=== PATIENT | female | born 1995 | race Two or more races ===

== ENCOUNTER 2018-05-26 14:30 | Inpatient (IN) | payer OTHER ==
[2018-06-02] MEDS ORDERED: CITRIC ACID/SODIUM CITRATE 30 ML UNIT-DOSE CUP PO ONE (11:57)
[2018-06-02] MEDS ORDERED: ELECTROLYTE-148 SOLN 1,000 ML IV ONE (11:57)
[2018-06-02] MEDS ORDERED: ELECTROLYTE-148 SOLN 1,000 ML IV SCH (13:00)
[2018-06-02] MEDS ORDERED: DEXTROSE 5%-LACTATED RINGERS 500 ML IV ONE (13:00)
[2018-06-02 13:02] VITALS: BMI 32.5
[2018-06-02] MEDS ORDERED: OXYTOCIN 20 UNITS in 0.9% NS 40 UNIT/2,000 ML INFUS.BAG IV ONE (14:40)
[2018-06-02] MEDS ORDERED: PROPOFOL 20 ML ONE (14:44)
[2018-06-02] MEDS ORDERED: SODIUM CHLORIDE 0.9% P/F 10 ML VIAL IJ ONE ×2 (14:45→14:47)
[2018-06-02] MEDS ORDERED: DEXAMETHASONE SOD PHOSPHATE 4 MG/1 ML VIAL ONE (14:45)
[2018-06-02] MEDS ORDERED: ePHEDrine SULFATE 50 MG/1 ML AMPULE ONE (14:45)
[2018-06-02] MEDS ORDERED: ceFAZolin SODIUM 1 GM VIAL ONE (14:45)
[2018-06-02] MEDS ORDERED: morphine SULFATE/Preservative Free 0.5 MG/ML (1cc Syringe) ONE ×2 (14:49→14:52)
--- NOTE | 2018-06-02 14:52 | HP ---
Past Medical History - Primary Care Physician PCP:: Lee Pollock - Admission Chief Complaint: 39 weeks, breech , GDM History of Present Illness: 23yo f 39 weeks, with HX of GDM, late registrant , breech presentation , admitted for c/s , cx clp, breech , fhr cat 1, procedure risks and benefit has explained to patient , History Source: Patient Limitations to Obtaining History: Language Barrier - Past Medical History ...: 1 ...Para: 0 ...Term: 0 ...: 0 ...Spon : 0 ...Induced : 0 ...Multiple Gestation: 0 ...LMP: 09/04/17 ... Weeks Gestation by Dates: 38.5 ...EDC by Dates: 06/11/18 ...EDC by Sono: 06/07/18 - Past Surgical History Hx Myomectomy: No Hx Transabdominal Cerclage: No - Smoking History Smoking history: Never smoked Have you smoked in the past 12 months: No - Alcohol/Substance Use Hx Alcohol Use: No - Social History Usual Living Arrangement: Yes: Alone History of Recent Travel: No Home Medications - Allergies Allergies/Adverse Reactions: Allergies Allergy/AdvReac Type Severity Reaction Status Date / Time No Known Allergies Allergy Verified 06/02/18 12:07 - Home Medications Home Medications: Ambulatory Orders Pnv No.95/Ferrous Fum/Folic AC [ Formula] 1 each PO DAILY 05/24/18 Review of Systems - Review of Systems Constitutional: reports: No Symptoms Eyes: reports: No Symptoms HENT: reports: No Symptoms Neck: reports: No Symptoms Cardiovascular: reports: No Symptoms Respiratory: reports: No Symptoms Gastrointestinal: reports: No Symptoms Genitourinary: reports: No Symptoms Breasts: reports: No Symptoms Reported Musculoskeletal: reports: No Symptoms Integumentary: reports: No Symptoms Neurological: reports: No Symptoms Endocrine: reports: No Symptoms Hematology/Lymphatic: reports: No Symptoms Psychiatric: reports: No Symptoms Physical Exam - Maternity Vital Signs: Vital Signs Temperature 98.0 F 06/02/18 12:00 Pulse Rate 78 06/02/18 12:00 Respiratory Rate 18 06/02/18 12:00 Blood Pressure 128/55 L 06/02/18 12:00 O2 Sat by Pulse Oximetry (%) Constitutional: Yes: Well Nourished, No Distress, Calm Eyes: Yes: WNL, Conjunctiva Clear, EOM Intact HENT: Yes: WNL, Atraumatic, Normocephalic Neck: Yes: WNL, Supple, Trachea Midline Cardiovascular: Yes: WNL, Regular Rate and Rhythm Breast(s): Yes: WNL - Abdominal Exam/OB Fundal Height: 40 Number of Fetuses: Single Presentation: Breech Contractions: Yes Regularity: Irregular Intensity: Unaware Monitor Mode: External Heart Rate Location: [facility] Category: I Accelerations: Uniform Decelerations: None - Vaginal Exam/OB Vaginal Bleediing: No Speculum Exam: No Dilatation (cm): closed Effacement (%): 50 Amniotic Membrane Status: Intact Presentation: Hany Breech Station: -3 - Physical Exam Musculoskeletal: Yes: WNL Extremities: Yes: WNL Edema: Yes Edema: LLE: Trace, RLE: Trace Deep Tendon Reflex Grade: Normal +2 Psychiatric: Yes: WNL Hemorrhage Risk Assessment - Risk Factors Medium Risk Factors: Yes: None High Risk Factors: Yes: None Risk Score: 1 Risk Level: Medium Risk Problem List - Problems (1) 39 weeks gestation of Code(s): Z3A.39 - 39 WEEKS GESTATION OF (2) with 39 completed weeks gestation Code(s): Z3A.39 - 39 WEEKS GESTATION OF (3) Breech presentation Code(s): O32.1XX0 - MATERNAL CARE FOR BREECH PRESENTATION, UNSP Qualifiers: Fetus number: single or unspecified fetus Qualified Code(s): O32.1XX0 - Maternal care for breech presentation, not applicable or unspecified (4) Gestational diabetes Code(s): O24.419 - GESTATIONAL DIABETES MELLITUS IN , UNSP CONTROL Qualifiers: Gestational diabetes mellitus control: diet-controlled Assessment/Plan c/section rba discussed
[2018-06-02] MEDS ORDERED: BUPIVACAINE 0.75% IN DEXTROSE/PF 2ML AMPULE NR ONE (14:53)
[2018-06-02] MEDS ORDERED: TUBERCULIN PPD 5 TU/0.1ML SYRINGE (IN PATIENT USE ONLY) ID ONE (15:00)
[2018-06-02] MEDS ORDERED: LABETALOL HCL 5 MG/1 ML (100MG/20 ML VIAL) ONE (15:02)
[2018-06-02] MEDS ORDERED: diphenhydrAMINE HCL 25 MG CAPSULE (FP) PO PRN (15:50)
[2018-06-02] MEDS ORDERED: oxyCODONE HCL 5 MG TABLET PO PRN ×2 (15:50)
[2018-06-02] MEDS ORDERED: IBUPROFEN 800 MG/8 ML IJ IVPB PRN (15:50)
[2018-06-02] MEDS ORDERED: BENZOCAINE 20% 57 GM BOTTLE TP PRN (15:50)
[2018-06-02] MEDS ORDERED: WITCH HAZEL 50% (TUCKS) 40 PAD/JAR PAD TP PRN (15:50)
[2018-06-02] MEDS ORDERED: BENZOCAINE 28 GM HEMORRHOIDAL OINTMENT PR PRN (15:50)
[2018-06-02] MEDS ORDERED: METHYLERGONOVINE MALEATE 0.2 MG/1 ML AMP IM PRN (15:50)
[2018-06-02] MEDS ORDERED: OXYTOCIN 20 UNITS in 0.9% NS 20 UNIT/1,000 ML INFUS.BAG IV SCH (16:00)
[2018-06-02] MEDS ORDERED: DEXTROSE 5%-LACTATED RINGERS 1,000 ML IV SCH (16:00)
[2018-06-02] MEDS ORDERED: ONDANSETRON 4 MG/2 ML VIAL IVPUSH PRN (16:55)
[2018-06-02] MEDS: morphine SULFATE/Preservative Free 0.5 MG/ML (1cc Syringe) EP ONE ×2 (17:15→18:41)
[2018-06-02] MEDS ORDERED: CEFAZOLIN 1 GM/D5W 1 GM/50 ML BAG IVPB SCH (18:00)
[2018-06-02] MEDS: CEFAZOLIN 1 GM/D5W 1 GM/50 ML BAG IVPB SCH (23:05)
[2018-06-03] MEDS: OXYTOCIN 20 UNITS in 0.9% NS 20 UNIT/1,000 ML INFUS.BAG IV SCH ×2 (06:36)
[2018-06-03] MEDS: CEFAZOLIN 1 GM/D5W 1 GM/50 ML BAG IVPB SCH (06:36)
--- NOTE | 2018-06-03 07:41 | PN ---
Progress Note (short form) - Note Progress Note: pod 1 ,doing well, has mild incisional pain Last Vital Signs Temp Pulse Resp BP Pulse Ox 98.8 F 84 20 122/53 L 98 06/03/18 03:30 06/03/18 03:30 06/03/18 06:00 06/03/18 03:30 06/02/18 17:25 abdomen soft, no distension, no cva incision dry, clean no calf tenderness plan ambulate , cbc, advance diet Problem List - Problems (1) 39 weeks gestation of Code(s): Z3A.39 - 39 WEEKS GESTATION OF (2) with 39 completed weeks gestation Code(s): Z3A.39 - 39 WEEKS GESTATION OF (3) Breech presentation Code(s): O32.1XX0 - MATERNAL CARE FOR BREECH PRESENTATION, UNSP Qualifiers: Fetus number: single or unspecified fetus Qualified Code(s): O32.1XX0 - Maternal care for breech presentation, not applicable or unspecified (4) Gestational diabetes Code(s): O24.419 - GESTATIONAL DIABETES MELLITUS IN , UNSP CONTROL Qualifiers: Gestational diabetes mellitus control: diet-controlled
[2018-06-03 08:08] LABS: BASO % 0.3 % (0-2.0); EOS % 0.1 % (0-4.5); HEMATOCRIT 37.3 % (32.4-45.2); HEMOGLOBIN 12.4 GM/dL (10.7-15.3); MCH 30.7 pg (25.7-33.7); MCHC 33.3 g/dl (32.0-36.0); MEAN CELL VOLUME 92.2 fl (80-96); MEAN PLT VOLUME 8.9 fl (7.5-11.1); MONO % 6.7 % (3.8-10.2); NEUT % 80.9 % (42.8-82.8); PLATELET COUNT 176 K/MM3 (134-434); RBC 4.05 M/mm3 (3.60-5.2); RDW 14.7 % (11.6-15.6); WHITE BLOOD COUNT 11.8 K/mm3 (4.0-10.0)
[2018-06-03] MEDS: ACETAMINOPHEN 325 MG TABLET (FP) PO PRN ×3 (08:49→20:26)
[2018-06-03] MEDS: SIMETHICONE 80 MG TAB.CHEW (FP) PO PRN ×3 (08:49→20:25)
[2018-06-03] MEDS: IBUPROFEN 600 MG TABLET (FP) PO PRN ×3 (08:51→20:25)
[2018-06-03] MEDS: ENOXAPARIN NA (PORCINE) 40 MG/0.4 ML DISP.SYRIN SQ SCH (09:36)
[2018-06-03] MEDS ORDERED: DIPHTH,PERTUSS(ACELL),TET 0.5 ML DISP.SYRIN IM ONE (10:00)
[2018-06-03] MEDS ORDERED: BISACODYL 10 MG SUPP.RECT RC PRN (15:51)
[2018-06-04] MEDS: SIMETHICONE 80 MG TAB.CHEW (FP) PO PRN ×3 (00:50→16:33)
[2018-06-04] MEDS: IBUPROFEN 600 MG TABLET (FP) PO PRN ×4 (00:50→22:31)
[2018-06-04] MEDS: ACETAMINOPHEN 325 MG TABLET (FP) PO PRN ×4 (00:51→22:31)
--- NOTE | 2018-06-04 09:36 | PN ---
Post Progress Note Type of Delivery: Primary C/S Vital Signs: Vital Signs Temperature 98.1 F 06/03/18 21:37 Pulse Rate 61 06/03/18 21:37 Respiratory Rate 20 06/03/18 21:37 Blood Pressure 114/69 06/03/18 21:37 O2 Sat by Pulse Oximetry (%) 98 06/02/18 17:25 Uterus: Yes: Fundus Firm Incision: Yes: Dressing dry and intact Abdomen/GI: Yes: Abdomen soft Lochia: Yes: Rubra Lochia, amount: Small Extremities: Yes: Calves non-tender Perineum: Yes: Intact Activity: Ambulating (Pain controlled) - Labs Labs: CBC WBC 11.8 K/mm3 (4.0-10.0) H 06/03/18 08:00 RBC 4.05 M/mm3 (3.60-5.2) 06/03/18 08:00 Hgb 12.4 GM/dL (10.7-15.3) 06/03/18 08:00 Hct 37.3 % (32.4-45.2) 06/03/18 08:00 MCV 92.2 fl (80-96) 06/03/18 08:00 MCH 30.7 pg (25.7-33.7) 06/03/18 08:00 MCHC 33.3 g/dl (32.0-36.0) 06/03/18 08:00 RDW 14.7 % (11.6-15.6) 06/03/18 08:00 Plt Count 176 K/MM3 (134-434) 06/03/18 08:00 MPV 8.9 fl (7.5-11.1) 06/03/18 08:00 Absolute Neuts (auto) 9.5 K/mm3 (1.5-8.0) H 06/03/18 08:00 Neutrophils % 80.9 % (42.8-82.8) 06/03/18 08:00 Lymphocytes % 12.0 % (8-40) D 06/03/18 08:00 Monocytes % 6.7 % (3.8-10.2) 06/03/18 08:00 Eosinophils % 0.1 % (0-4.5) D 06/03/18 08:00 Basophils % 0.3 % (0-2.0) 06/03/18 08:00 Nucleated RBC % 0 % (0-0) 06/03/18 08:00 Assessment/Plan 23yo s/p PTLCS, breech Routine PP care OOB, Ambulate Labs reviewed D/C Adriel today Anticipate d/c to home by POD#4 Moises Casey MD
[2018-06-04] MEDS: ENOXAPARIN NA (PORCINE) 40 MG/0.4 ML DISP.SYRIN SQ SCH (10:14)
[2018-06-04] MEDS ORDERED: SENNOSIDES/DOCUSATE COMBO (SENNA PLUS) TABLET (UD) PO PRN (22:00)
[2018-06-05] MEDS: IBUPROFEN 600 MG TABLET (FP) PO PRN ×3 (07:52→21:01)
[2018-06-05] MEDS: SIMETHICONE 80 MG TAB.CHEW (FP) PO PRN ×3 (07:52→21:01)
[2018-06-05] MEDS: ACETAMINOPHEN 325 MG TABLET (FP) PO PRN ×3 (07:53→21:01)
[2018-06-05 08:09] LABS: BASO % 0.4 % (0-2.0); EOS % 1.1 % (0-4.5); HEMATOCRIT 36.8 % (32.4-45.2); HEMOGLOBIN 12.4 GM/dL (10.7-15.3); LYMPH % 21.8 % (8-40); MCH 31.1 pg (25.7-33.7); MCHC 33.7 g/dl (32.0-36.0); MEAN CELL VOLUME 92.3 fl (80-96); MONO % 5.4 % (3.8-10.2); NEUT % 71.3 % (42.8-82.8); PLATELET COUNT 187 K/MM3 (134-434); RBC 3.98 M/mm3 (3.60-5.2); RDW 15.8 % (11.6-15.6); WHITE BLOOD COUNT 7.3 K/mm3 (4.0-10.0)
--- NOTE | 2018-06-05 09:39 | PN ---
Post Progress Note Post Day: 2 Type of Delivery: Primary C/S Vital Signs: Vital Signs Temperature 98.1 F 06/04/18 22:00 Pulse Rate 61 06/04/18 22:00 Respiratory Rate 20 06/04/18 22:00 Blood Pressure 121/66 06/04/18 22:00 O2 Sat by Pulse Oximetry (%) 98 06/02/18 17:25 Uterus: No: Fundus Firm, Fundus above umbilicus, Fundus @ umbilicus, Fundus below umbilicus, Non-tender, Other Incision: No: Dressing dry and intact, Bre intact, Sutures intact, Redness, Oozing, Other Abdomen/GI: No: Abdomen soft, Abdominal Distention, Tender, Passing flatus, Tolerating PO, Other Lochia: Yes: Rubra Lochia, amount: Small Extremities: Yes: Calves non-tender Perineum: Yes: Intact Activity: Ambulating - Labs Labs: CBC WBC 7.3 K/mm3 (4.0-10.0) 06/05/18 06:10 RBC 3.98 M/mm3 (3.60-5.2) 06/05/18 06:10 Hgb 12.4 GM/dL (10.7-15.3) 06/05/18 06:10 Hct 36.8 % (32.4-45.2) 06/05/18 06:10 MCV 92.3 fl (80-96) 06/05/18 06:10 MCH 31.1 pg (25.7-33.7) 06/05/18 06:10 MCHC 33.7 g/dl (32.0-36.0) 06/05/18 06:10 RDW 15.8 % (11.6-15.6) H 06/05/18 06:10 Plt Count 187 K/MM3 (134-434) 06/05/18 06:10 MPV 9.0 fl (7.5-11.1) 06/05/18 06:10 Absolute Neuts (auto) 5.2 K/mm3 (1.5-8.0) 06/05/18 06:10 Neutrophils % 71.3 % (42.8-82.8) 06/05/18 06:10 Lymphocytes % 21.8 % (8-40) D 06/05/18 06:10 Monocytes % 5.4 % (3.8-10.2) 06/05/18 06:10 Eosinophils % 1.1 % (0-4.5) D 06/05/18 06:10 Basophils % 0.4 % (0-2.0) 06/05/18 06:10 Nucleated RBC % 0 % (0-0) 06/05/18 06:10 Assessment/Plan 23yo s/p PTLCS, breech, POD#2 Routine PP care OOB, Ambulate Labs reviewed Anticipate d/c to home by POD#4 Moises Casey MD
[2018-06-05] MEDS: ENOXAPARIN NA (PORCINE) 40 MG/0.4 ML DISP.SYRIN SQ SCH (11:07)
--- NOTE | 2018-06-05 19:20 | DS ---
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 Vital Signs: Vital Signs Temperature 97.5 F L 06/05/18 10:00 Pulse Rate 80 06/05/18 10:00 Respiratory Rate 20 06/05/18 10:00 Blood Pressure 128/79 06/05/18 10:00 O2 Sat by Pulse Oximetry (%) 98 06/02/18 17:25 Constitutional: Yes: Well Nourished, No Distress, Calm Eyes: Yes: WNL, Conjunctiva Clear, EOM Intact HENT: Yes: WNL, Atraumatic, Normocephalic Neck: Yes: WNL, Supple, Trachea Midline Cardiovascular: Yes: WNL, Regular Rate and Rhythm Respiratory: Yes: WNL, Regular, CTA Bilaterally Gastrointestinal: Yes: WNL ...Rectal Exam: Yes: WNL Renal/: Yes: WNL ....Post : Yes: Uterus firm, Uterus non-tender, Slight lochia rubra Breast(s): Yes: WNL Musculoskeletal: Yes: WNL Extremities: Yes: WNL Integumentary: Yes: WNL Wound/Incision: Yes: Clean/Dry, Well Approximated, [place] Intact Neurological: Yes: WNL, Alert, Oriented ...Motor Strength: WNL Psychiatric: Yes: WNL, Alert, Oriented Labs: CBC, BMP 06/05/18 06:10 Delivery - Delivery Section: Low Flap Transverse (no complication) Type of Anesthesia: Spinal Episiotomy/Laceration: None EBL (cc): 500 Delivery, Single - Stages of Labor Date of Delivery: 06/02/18 Time of Delivery: 15:15 Time Placenta Delivered: 15:16 Placenta: Yes: Manual Removal - Condition of Cellular Phone Repairer/Gate Mortiser Operator Present: Yes Name: Radha Montero Gender: Female Weight: 7 lb 4 oz Position: Right, SA Total Hours ROM (Hrs/Mins): 0/2 - 1 Minute Total Score: 9 5 Minutes Total Score: 9 - Robards Feeding Plan Initial Plan: Elected not to breastfeed exclusively throughout hospitalization Discharge Summary Reason For Visit: Current Active Problems 39 weeks gestation of (Acute) Breech presentation (Acute) Gestational diabetes (Acute) with 39 completed weeks gestation (Acute) Procedures: Principal: primary LST c/s Hospital Course: no complicatom Condition: Stable - Instructions Diet, Activity, Other Instructions: Regular Diet Referrals: Tanya Casey MD [Staff Physician] - Disposition: HOME - Home Medications Comprehensive Discharge Medication List: Ambulatory Orders Pnv No.95/Ferrous Fum/Folic AC [ Formula] 1 each PO DAILY 05/24/18 Ibuprofen [Motrin -] 600 mg PO QID PRN #28 tablet 06/05/18
[2018-06-06 09:20] VITALS: BP 136/74; PULSE 76; TEMP 99
[2018-06-06] MEDS: ENOXAPARIN NA (PORCINE) 40 MG/0.4 ML DISP.SYRIN SQ SCH (10:00)
--- NOTE | 2018-06-06 16:12 | PATH ---
Surgical Pathology Report Patient Name: BLANCHE SILVA Med. Rec. #: [id number] /Age/Gender: 1995 (Age: 23) / F Account: [id number] Location: [facility] OBS/CHIEF SCIENTIST Taken: 06/02/2018 Received: 06/03/2018 Reported: 06/06/2018 Physicians: Lee Pollock M.D. Specimen(s) Received PLACENTA Clinical History , term , breech presentation, marginal cord insertion, gestational diabetic Final Diagnosis PLACENTA: THIRD TRIMESTER PLACENTA. TRIVASCULAR CORD. MEMBRANES WITH NO DIAGNOSTIC ABNORMALITIES. Electronically Signed Hong Chavarria M.D. Gross Description The specimen is received fresh labeled placenta and is a 480 gram, 15.0 x 13.0 x 2.5 cm. placenta with attached membranes and umbilical cord. The attached membranes are duran, translucent with focal opacities and insert marginally. The umbilical cord measures 41 cm. in length and averages 1.1 cm. in diameter. The cord inserts at the margin. No true knots or strictures are identified. Cut surface of the umbilical cord reveals 3 vessels. The surface is perrin-blue with minimal fibrin deposition and appropriate caliber vessels. The maternal surface is red-brown with focal defects. Sectioning reveals red-brown, spongy parenchyma. No lesions are identified. List Of [employer] sections are submitted in three cassettes as follows: 1- membrane rolls and umbilical cord; 2-3- full thickness sections of placenta. /06/03/2018 saudi06/03/2018
--- NOTE | 2018-06-07 13:13 | OP ---
DATE OF OPERATION: 06/02/2018 PREOPERATIVE DIAGNOSIS: , 39 weeks, gestational diabetes, breech presentation, for section. POSTOPERATIVE DIAGNOSIS: , 39 weeks, gestational diabetes, breech presentation, for section. PROCEDURE: Primary low-segment transverse section. SURGEON: Lee Pollock MD LABORER SYRUP MACHINE: HAYDEN Schulte ANESTHESIA: Spinal. ESTIMATED BLOOD LOSS: 500 mL. DESCRIPTION OF PROCEDURE: The patient was taken to the operating room, had adequate spinal anesthesia. Abdomen and perineum were prepped and draped. Pfannenstiel abdominal skin incision was made. Abdominal wall was cut layer by layer until the peritoneum was exposed and incised. Upon entering the abdominal cavity, low uterine segment was identified, and uterovesical fold of peritoneum was established and bladder was pushed down. Then, a low transverse uterine incision was made. Amniotic sac was entered. Clear fluid. Baby was in aleshia breech, right sacrum anterior position, which was delivered. Nasopharynx was suctioned, and live baby was delivered without any difficulty. Placenta was delivered manually. Uterine cavity was cleaned of all remaining tissue. Uterine incision was closed using 2 layers, 1st layer with 0 Biosyn continuous suture, the 2nd layer with 0 Biosyn imbricating the 1st layer. Bladder flap was closed with 0 Biosyn continuous suture. Both tubes and ovaries were checked, were normal. No active bleeding was seen. All the lap pad, sponge, and instrument counts were correct. Then, peritoneum wasclosed with 0 Biosyn continuous suture, muscles were brought together with interrupted sutures of 0 Biosyn, fascia was closed with 0 Biosyn continuous suture, subcutaneous fat with interrupted suture of 0 Biosyn, and the skin was closed with linda. Patient tolerated the procedure well, left the OR in good condition. Kelly [id number]
== END 2018-06-06 12:00 | disposition home or self-care (01) | DRG 540 ==
LOC: JLDR 06-02 11:57 → J3W 06-02 18:00
PROVIDERS: ADMIT Obstetrics & Gynecology; ATTEND Obstetrics & Gynecology
PROC: 10D00Z1 Extraction of Products of Conception, Low, Open Approach (ICD-10-PCS; principal; 2018-06-02)
DX: O32.1XX0 Maternal care for breech presentation, not applicable or unspecified (principal); O24.429 Gestational diabetes mellitus in childbirth, unspecified control; Z3A.39 39 weeks gestation of pregnancy; Z37.0 Single live birth
CPT/HCPCS: 36415; 59025; 80048; 82962; 85025; 85610; 85730; 86593; 86850; 86900; 86901; 88307-TC; 90715

== ENCOUNTER 2018-06-25 22:35 | Emergency (ER) | payer OTHER ==
[2018-06-25 22:47] VITALS: BP 147/77; PULSE 85; TEMP 98; BMI 30.2
[2018-06-26] MEDS ORDERED: CEPHALEXIN MONOHYDRATE 500 MG CAPSULE (UD) PO ONE (01:02)
[2018-06-26] MEDS ORDERED: FLUCONAZOLE 50 MG TABLET PO ONE (01:02)
--- NOTE | 2018-06-26 01:08 | PDOC ---
History of Present Illness - General Chief Complaint: Wound Stated Complaint: WOUND OPEN Time Seen by Provider: 06/26/18 00:41 History Source: Patient Exam Limitations: No Limitations - History of Present Illness Initial Comments: 23 yo F with no past medical history presents to the emergency department with a wound opening at her site with purulent discharge. Per the patient, she started having this discharge occur 4 days prior to presentation when she had a spontaneous disruption of her surgical wound on the left side of the incision site located in the LLQ. Per the patient, she hasnt washed this area since that time. Denies the following: fever, chills, SOB, chest pain, nausea, vomiting, dizziness, lightheadedness, visual disturbances, dysuria, hematuria, vaginal bleeding/discharge, diarrhea, and hematochezia. Past History - Past Medical History Allergies/Adverse Reactions: Allergies Allergy/AdvReac Type Severity Reaction Status Date / Time No Known Allergies Allergy Verified 06/25/18 22:46 Home Medications: Ambulatory Orders Pnv No.95/Ferrous Fum/Folic AC [ Formula] 1 each PO DAILY 05/24/18 Ibuprofen [Motrin -] 600 mg PO QID PRN #28 tablet 06/05/18 Cephalexin [Keflex] 500 mg PO BID #14 capsule 06/26/18 Levofloxacin [Levaquin] 500 mg PO DAILY #7 tablet 07/03/18 Asthma: No Cancer: No Cardiac Disorders: No COPD: No Diabetes: No HTN: No Seizures: No Thyroid Disease: No - Suicide/Smoking/Psychosocial Hx Smoking History: Never smoked Have you smoked in the past 12 months: No Information on smoking cessation initiated: No Hx Alcohol Use: No Drug/Substance Use Hx: No Hx Substance Use Treatment: No Review of Systems - Review of Systems Able to Perform ROS?: Yes Is the patient limited Mosotho proficient: No Constitutional: No: Chills, Diaphoresis, Fever HEENTM: No: Eye Pain, Recent change in vision, Ear Pain, Nose Pain, Throat Pain , Mouth Pain Respiratory: No: Cough, Shortness of Breath, SOB with Exertion, Hemoptysis Cardiac (ROS): No: Chest Pain, Lightheadedness, Palpitations, Syncope ABD/GI: No: Constipated, Diarrhea, Nausea, Rectal Bleeding, Vomiting, Abdominal cramping, Tarry Stools : No: Burning, Dysuria, Hematuria, Incontinence Musculoskeletal: No: Back Pain, Joint Pain, Neck Pain Integumentary: Yes: Lesions. No: Bruising, Erythema, Sweating Neurological: No: Headache, Numbness, Tingling, Tremors Psychiatric: No: Change in Appetite Endocrine: No: Unexplained Weight Gain Hematologic/Lymphatic: No: Anemia *Physical Exam - Vital Signs Last Vital Signs Temp Pulse Resp BP Pulse Ox 98.0 F 85 17 147/77 100 06/25/18 22:43 06/25/18 22:43 06/25/18 22:43 06/25/18 22:43 06/25/18 22:43 - Physical Exam General Appearance: Yes: Nourished, Appropriately Dressed. No: Apparent Distress, Intoxicated HEENT: positive: EOMI, JAY JAY, Normal Voice, Symmetrical, TMs Normal, Pharynx Normal, Hearing Grossly Normal. negative: Pale Conjunctivae, Scleral Icterus (R ), Scleral Icterus (L), Muffled/Hoarse voice, Pharyngeal Erythema, Tonsillar Exudate, Tonsillar Erythema, Nasal Congestion, Rhinorrhea, Sinus Tenderness, Excessive drooling Neck: positive: Trachea midline, Supple. negative: Tender, Lymphadenopathy (R) , Lymphadenopathy (L), Tender lateral, Tender midline Respiratory/Chest: positive: Lungs Clear, Normal Breath Sounds. negative: Chest Tender, Respiratory Distress, Accessory Muscle Use, Crackles, Rales, Rhonchi, Stridor, Wheezing Cardiovascular: positive: Regular Rhythm, Regular Rate, S1, S2. negative: Systolic Murmur Gastrointestinal/Abdominal: positive: Normal Bowel Sounds, Flat, Soft, Other (C section scar with white discahrge consistent with fungal infection surrounding. 1 cm linear opening dehiscence with serosanguinous discharge. ). negative: Tender Lymphatic: negative: Adenopathy Musculoskeletal: positive: Normal Inspection. negative: CVA Tenderness, Vertebral Tenderness Extremity: positive: Normal Capillary Refill, Normal Inspection, Normal Range of Motion. negative: Tender, Swelling, Calf Tenderness Integumentary: positive: Normal Color, Dry, Warm. negative: Swelling, Ecchymosis Neurologic: positive: state epidemiologist II-XII NML intact, Fully Oriented, Alert, Normal Mood/ Affect, Normal Response, Motor Strength 5/5 ED Treatment Course - LABORATORY CBC & Chemistry Diagram: 06/26/18 01:20 Medical Decision Making - Medical Decision Making 23 yo F with no past medical history presents to the emergency department with a wound opening at her site with purulent discharge. Initial vitals: Initial Vital Signs Temp Pulse Resp BP Pulse Ox 98.0 F 85 17 147/77 100 06/25/18 22:43 06/25/18 22:43 06/25/18 22:43 06/25/18 22:43 06/25/18 22:43 Work up; ddx: cellulitits vs abscess patient's case was spoken with her OB Dr. Gayle who stated that the patient can be seen in outpatient the following wednesday. He agreed with giving her a dose of keflex for outpatient use and 1x dose of diflucan. The patient was told these abx would be given to her and to follow up with Dr. Aceves on Wednesday. She understood and agreed to do so. She will be discharged. Dispo: Discharge *DC/Admit/Observation/Transfer Diagnosis at time of Disposition: Wound dehiscence - Discharge Dispostion Disposition: HOME Condition at time of disposition: Stable Decision to Admit order: No - Prescriptions Prescriptions: Cephalexin [Keflex] 500 mg PO BID #14 capsule Levofloxacin [Levaquin] 500 mg PO DAILY #7 tablet - Referrals Referrals: Lee Pollock MD [Staff Physician] - - Patient Instructions Printed Discharge Instructions: DI for Wound Infection Additional Instructions: you were seen in the emergency department for the evaluation of your wound. we spoke to your OBGYN who stated you should come to their office on Wednesday morning (06/27/2018). Please take the antibiotics prescribed to you as directed. please return to the emergency department if you have worsening pain or new concerning symptoms such as fever, chills, abdominal pain, nausea vomiting. please keep the air dry and wiped down. thank you. Se lo atendi en el servicio de urgencias para la evaluacin de padilla herida. hablamos con padilla gineclogo quien le dijo que deba ir a padilla oficina el por la maana (27/06/2018). Por favor, tome los antibiticos recetados a usted segn las indicaciones. Por favor, vuelva al servicio de urgencias si tiene un empeoramiento del dolor o si tiene sntomas nuevos lianet fiebre, escalofros, dolor abdominal, vmitos con nuseas. Por favor, mantenga el aire seco y limpiado. annette. - Post Discharge Activity
[2018-06-26] MEDS ORDERED: CEPHALEXIN MONOHYDRATE 500 MG CAPSULE (UD) ONE (01:13)
[2018-06-26] MEDS ORDERED: FLUCONAZOLE 100 MG TABLET (UD) ONE (01:13)
[2018-06-26 01:30] LABS: BASO % 0.4 % (0-2.0); HEMATOCRIT 40.4 % (32.4-45.2); HEMOGLOBIN 13.6 GM/dL (10.7-15.3); LYMPH % 19.4 % (8-40); MCH 30.7 pg (25.7-33.7); MCHC 33.6 g/dl (32.0-36.0); MEAN CELL VOLUME 91.2 fl (80-96); MEAN PLT VOLUME 8.2 fl (7.5-11.1); MONO % 6.1 % (3.8-10.2); NEUT % 72.1 % (42.8-82.8); PLATELET COUNT 281 K/MM3 (134-434); RBC 4.43 M/mm3 (3.60-5.2); WHITE BLOOD COUNT 8.9 K/mm3 (4.0-10.0)
--- NOTE | 2018-06-26 21:27 | PDOC ---
Documentation entered by Dominique Correa SCRIBE, acting as scribe for Negra Villa MD. Negra Villa MD: This documentation has been prepared by the leonidibe, Dominique Correa SCRIBE, under my direction and personally reviewed by me in its entirety. I confirm that the documentation accurately reflects all work, treatment, procedures, and medical decision making performed by me. Attending Attestation - Resident Resident Name: Julien Winslow - ED Attending Attestation I have performed the following: I have examined & evaluated the patient, The case was reviewed & discussed with the resident, I agree w/resident's findings & plan - HPI HPI: 06/26/18 01:13 The patient is a 23 year old female with no reported past medical history presents to the emergency department with wound opening, with discharge. The patient reports on Wednesday, while she was laying down her C- section wound opened to the LLQ. The patient reports the wound opening was with discharge. The patient reports since Wednesday she hasnt washed her abdominal region. Denies any new onset of pain or discharge. The patient reports shes the baby. The patient reports additional concern of leg swelling several days ago, now resolved. Denies fever, chills, chest pain, shortness of breath, dizziness of headache. - Physicial Exam PE: 06/26/18 01:21 Constitutional: Awake, alert, oriented. No acute distress. comfortable. Neck: Supple. Full ROM. No lymphadenopathy. Cardiovascular: Regular rate. Regular rhythm. S1, S2 regular. Distal pulses are 2+ and symmetric. Pulmonary/Chest: No evidence of respiratory distress. Clear to auscultation bilaterally No wheezing, rales or rhonchi. Abdominal: +well healed scar, except for the left center aspect with 1 cm dehiscence with serosanguinous ooze, beneath the pannus large area of nilay infection. No flank pain. Pt is able to eat and has normal bowel movements. Soft, nontender. Back: No CVA tenderness. Musculoskeletal: No lower extremity swelling, pt states the swelling has gone down. No edema. No cyanosis. No clubbing. Full range of motion in all extremities. Nocalf tenderness. Radial/pedal pulses are intact and 2+ bilaterally Skin: Skin is warm and dry. No petechiae. No purpura. Neurological: Alert and oriented to person, place, and time. Cranial nerves II -XII are grossly intact. Normal speech. Strength is grossly symmetric. No sensory deficits. - Medical Decision Making 06/27/18 00:41 We spoke to consumer studies professor OB, Dr. Pollock, who felivered pt's baby and he wants to see pt on Wednesday in the office and wants keflex for the patient. We will give diflucan for her nilay beneath her pannus area
== END 2018-06-26 02:40 | disposition home or self-care (01) ==
LOC: JER 22:35
DX: O90.89 Other complications of the puerperium, not elsewhere classified (principal); O90.0 Disruption of cesarean delivery wound
CPT/HCPCS: 36415; 85025; 87070; 87076; 87186; 87205; 99282-25

== ENCOUNTER 2022-01-20 23:00 | Emergency (ER) | payer OTHER ==
[2022-01-20 23:04] VITALS: BP 124/83; PULSE 76; RESP 18; TEMP 97.9; BMI 32.3
[2022-01-21 00:54] LABS: BASO % 0.3 % (0-2.0); EOS % 2.1 % (0-4.5); HEMATOCRIT 39.3 % (32.4-45.2); HEMOGLOBIN 12.9 GM/dL (10.7-15.3); LYMPH % 24.9 % (8-40); MCH 28.9 pg (25.7-33.7); MCHC 32.9 g/dl (32.0-36.0); MEAN CELL VOLUME 87.7 fl (80-96); MEAN PLT VOLUME 8.2 fl (7.5-11.1); MONO % 6.3 % (3.8-10.2); NEUT % 66.4 % (42.8-82.8); PLATELET COUNT 284 10^3/uL (134-434); RBC 4.48 M/mm3 (3.60-5.2); RDW 13.4 % (11.6-15.6); WHITE BLOOD COUNT 9.3 K/mm3 (4.0-10.0)
[2022-01-21 01:00] LABS: EPI CELLS >36 /uL (0-25.1); HYALINE CASTS 3 /uL (0-3.1); URINE APPEARANCE CLOUDY; URINE BILIRUBIN NEGATIVE (NEGATIVE); URINE COLOR YELLOW; URINE GLUCOSE (UA) NEGATIVE (NEGATIVE); URINE KETONE NEGATIVE (NEGATIVE); URINE LEUK ESTERASE 3+ (NEGATIVE); URINE NITRITE NEGATIVE (NEGATIVE); URINE PROTEIN TRACE (NEGATIVE); URINE RBC 47 /uL (0-23.9); URINE UROBILINOGEN 0.2 mg/dL (0.2-1.0); URINE WBC 343 /uL (0-25.8)
[2022-01-21 01:07] LABS: INR 1.07 (0.83-1.09); PROTHROMBIN TIME (PATIENT) 12.3 SEC (9.7-13.0)
[2022-01-21 01:14] LABS: ALBUMIN 3.6 g/dl (3.4-5.0); BLOOD UREA NITROGEN 13.8 mg/dL (7-18); CALCIUM 9.5 mg/dL (8.5-10.1)
[2022-01-21 01:17] LABS: CREATININE 0.8 mg/dL (0.55-1.3)
[2022-01-21 01:19] LABS: BILIRUBIN,TOTAL 0.2 mg/dL (0.2-1); TOT PROT 6.9 g/dl (6.4-8.2)
[2022-01-21 06:57] LABS: URINE BACTERIA 1244.8 /uL (0-1359)
== END 2022-01-21 01:41 | disposition left against medical advice (07) ==
LOC: JER 23:00
DX: O26.851 Spotting complicating pregnancy, first trimester (principal); Z3A.08 8 weeks gestation of pregnancy
CPT/HCPCS: 36415; 80053; 81003; 84702; 85025; 85610; 86850; 86900; 86901; 87086; 99284-25

== ENCOUNTER 2022-09-01 12:05 | Inpatient (IN) | payer OTHER ==
[2022-09-01] MEDS ORDERED: ELECTROLYTE-148 SOLN 1,000 ML IV SCH (18:00)
[2022-09-01 18:28] VITALS: BMI 33.9
[2022-09-01 18:36] LABS: BASO % 0.2 % (0-2.0); EOS % 0.6 % (0-4.5); HEMATOCRIT 41.6 % (32.4-45.2); HEMOGLOBIN 14.3 GM/dL (10.7-15.3); LYMPH % 13.2 % (8-40); MCH 30.2 pg (25.7-33.7); MCHC 34.3 g/dl (32.0-36.0); MEAN PLT VOLUME 8.8 fl (7.5-11.1); MONO % 4.7 % (3.8-10.2); NEUT % 81.3 % (42.8-82.8); PLATELET COUNT 195 10^3/uL (134-434); RBC 4.72 M/mm3 (3.60-5.2); WHITE BLOOD COUNT 8.9 K/mm3 (4.0-10.0)
[2022-09-01 18:52] LABS: INR 0.92 (0.83-1.09); PROTHROMBIN TIME (PATIENT) 10.7 SEC (9.7-13.0)
[2022-09-01 18:55] LABS: ACTIVATED PTT 27.2 SECONDS (25.2-36.5)
[2022-09-01 19:01] LABS: POTASSIUM 4.2 mmol/L (3.5-5.1)
[2022-09-01 19:03] LABS: ALBUMIN 2.7 g/dl (3.4-5.0); BLOOD UREA NITROGEN 13.9 mg/dL (7-18); CALCIUM 8.8 mg/dL (8.5-10.1)
[2022-09-01 19:06] LABS: CREATININE 0.6 mg/dL (0.55-1.3)
[2022-09-01 19:08] LABS: BILIRUBIN,TOTAL 0.2 mg/dL (0.2-1)
[2022-09-01] MEDS ORDERED: PROMETHAZINE HCL 25 MG/1 ML VIAL IVPB PRN (22:47)
[2022-09-01] MEDS ORDERED: BUTORPHANOL TARTRATE 1 MG/ML VIAL IVPUSH PRN (22:47)
[2022-09-02] MEDS ORDERED: DEXTROSE 5%-LACTATED RINGERS 1,000 ML IV SCH (00:15)
[2022-09-02] MEDS ORDERED: BUTORPHANOL TARTRATE 1 MG/ML VIAL ONE (05:25)
[2022-09-02] MEDS ORDERED: PROMETHAZINE HCL 25 MG/1 ML VIAL ONE (05:26)
[2022-09-02] MEDS ORDERED: FENTANYL CITRATE/PF 50 MCG/ML VIAL ONE (12:18)
[2022-09-02] MEDS ORDERED: CITRIC ACID/SODIUM CITRATE 30 ML UNIT-DOSE CUP PO ONE (12:20)
[2022-09-02] MEDS ORDERED: ACETAMINOPHEN 325 MG TABLET (FP) PO PRN (14:26)
[2022-09-02] MEDS ORDERED: IBUPROFEN 800 MG/8 ML IJ IVPB PRN (14:26)
[2022-09-02] MEDS ORDERED: METHYLERGONOVINE MALEATE 0.2 MG/1 ML AMP IM PRN (14:26)
[2022-09-02] MEDS: OXYTOCIN 20 UNITS in 0.9% NS 20 UNIT/1,000 ML INFUS.BAG IV SCH (15:30)
[2022-09-02] MEDS ORDERED: OXYTOCIN 20 UNITS in 0.9% NS 20 UNIT/1,000 ML INFUS.BAG IV ONE (15:35)
[2022-09-02] MEDS: FERROUS SO4 325 MG TABLET (FP) PO SCH (22:00)
[2022-09-03] MEDS ORDERED: oxyCODONE HCL 5 MG TABLET PO PRN (02:26)
[2022-09-03] MEDS: OXYTOCIN 20 UNITS in 0.9% NS 20 UNIT/1,000 ML INFUS.BAG IV SCH (02:35)
[2022-09-03 08:35] LABS: BASO % 0.1 % (0-2.0); EOS % 0.1 % (0-4.5); HEMATOCRIT 36.6 % (32.4-45.2); HEMOGLOBIN 12.4 GM/dL (10.7-15.3); LYMPH % 13.9 % (8-40); MCH 30.1 pg (25.7-33.7); MCHC 33.8 g/dl (32.0-36.0); MONO % 5.5 % (3.8-10.2); NEUT % 80.4 % (42.8-82.8); PLATELET COUNT 153 10^3/uL (134-434); RBC 4.11 M/mm3 (3.60-5.2); RDW 14.1 % (11.6-15.6)
[2022-09-03] MEDS: FERROUS SO4 325 MG TABLET (FP) PO SCH ×2 (10:49→22:32)
[2022-09-03] MEDS: PRENATAL VITAMINS W/ FOLIC ACID TABLET (FP) PO SCH (10:49)
[2022-09-03] MEDS ORDERED: BISACODYL 10 MG SUPP.RECT RC PRN (14:26)
[2022-09-03] MEDS: SIMETHICONE 80 MG TAB.CHEW (FP) PO PRN ×2 (18:08→22:32)
[2022-09-03] MEDS: IBUPROFEN 600 MG TABLET (FP) PO PRN ×2 (18:08→22:32)
[2022-09-04] MEDS: IBUPROFEN 600 MG TABLET (FP) PO PRN ×2 (09:45→22:14)
[2022-09-04] MEDS: FERROUS SO4 325 MG TABLET (FP) PO SCH ×2 (09:45→22:14)
[2022-09-04] MEDS: PRENATAL VITAMINS W/ FOLIC ACID TABLET (FP) PO SCH (09:45)
[2022-09-04] MEDS: SIMETHICONE 80 MG TAB.CHEW (FP) PO PRN (09:45)
[2022-09-05] MEDS: SIMETHICONE 80 MG TAB.CHEW (FP) PO PRN (01:41)
[2022-09-05] MEDS: IBUPROFEN 600 MG TABLET (FP) PO PRN (06:31)
[2022-09-05 07:21] LABS: BASO % 0.1 % (0-2.0); EOS % 1.9 % (0-4.5); HEMATOCRIT 39.3 % (32.4-45.2); HEMOGLOBIN 12.8 GM/dL (10.7-15.3); LYMPH % 22.8 % (8-40); MCH 29.7 pg (25.7-33.7); MCHC 32.5 g/dl (32.0-36.0); MEAN CELL VOLUME 91.3 fl (80-96); MONO % 5.2 % (3.8-10.2); PLATELET COUNT 198 10^3/uL (134-434)
[2022-09-05] MEDS: FERROUS SO4 325 MG TABLET (FP) PO SCH (09:08)
[2022-09-05] MEDS: PRENATAL VITAMINS W/ FOLIC ACID TABLET (FP) PO SCH (09:08)
[2022-09-05 09:17] VITALS: BP 123/82; PULSE 88; RESP 18; TEMP 99
== END 2022-09-05 15:05 | disposition home or self-care (01) | DRG 540 ==
LOC: JDEL 12:05 → JLDR 17:50 → J3W 09-02 16:15
PROVIDERS: ADMIT Obstetrics & Gynecology; ATTEND Obstetrics & Gynecology
PROC: 10D00Z1 Extraction of Products of Conception, Low, Open Approach (ICD-10-PCS; principal; 2022-09-02)
DX: O66.41 Failed attempted vaginal birth after previous cesarean delivery (principal); Z3A.39 39 weeks gestation of pregnancy; Z37.0 Single live birth
CPT/HCPCS: 36415; 59025; 76819-TC; 80053; 82570; 82962; 84156; 85025; 85610; 85730; 86780; 86850; 86900; 86901; 88307-TC; 94010